=== PATIENT | female | born 1955 | race Caucasian/White ===

== ENCOUNTER 2020-06-04 17:47 | Emergency (ER) | payer SELFPAY ==
[~2020-06-04] VITALS: Ht 167.6 cm; Wt 65.8 kg
[2020-06-04] MEDS ORDERED: DEXAMETHASONE SOD PHOSPHATE 4 MG/ML VIAL IM ONE (18:30)
[2020-06-04] MEDS ORDERED: ACETAMINOPHEN 325 MG TABLET PO ONE (18:30)
[2020-06-04] MEDS ORDERED: MORPHINE SULFATE INJ 2 MG/ML DISP.SYRIN IM ONE (18:30)
[2020-06-04] MEDS ORDERED: ONDANSETRON 4 MG TAB.RAPDIS SL ONE (18:30)
[2020-06-04] MEDS ORDERED: MORPHINE SULFATE INJ 2 MG/ML DISP.SYRIN ONE (18:46)
[2020-06-04] MEDS ORDERED: ACETAMINOPHEN 325 MG TABLET ONE (18:46)
[2020-06-04] MEDS ORDERED: DEXAMETHASONE SOD PHOSPHATE 10 MG/ML VIAL ONE (18:46)
[2020-06-04] MEDS ORDERED: ONDANSETRON 4 MG TAB.RAPDIS ONE (18:46)
[2020-06-04 19:04] LABS: APPEARANCE,URINE Clear (CLEAR); BILIRUBIN,URINE Negative (NEGATIVE); BLOOD, URINE Negative Ery/uL (NEGATIVE); COLOR,URINE Yellow (YELLOW); KETONES,URINE Negative (NEGATIVE); LEUKOCYTE ESTERASE ,URINE Negative (NEGATIVE); NITRITE, URINE Negative (NEGATIVE); PH,URINE 8.5 (5.0-8.0); PROTEIN,URINE Negative (NEGATIVE); UGLUCOSE Negative (NEGATIVE); UROBILINOGEN,URINE 0.2 EU/dL (0.2)
--- NOTE | 2020-06-04 19:15 | NUR ---
patient came in to the er c/o lower back pain, on room air, breathing evenly and unlabored. connected to the monitor and pulse ox. kept comfortable, will continue to monitor accordingly.
--- NOTE | 2020-06-04 19:16 | NUR ---
report given to Tio ORTIZ for irina
[2020-06-04 19:54] LABS: BASOPHILS % (AUTO) 0.6 % (0.0-2.0); EOSINOPHILS % (AUTO) 0.5 % (0.0-6.0); HEMATOCRIT 41 % (33-45); HEMOGLOBIN 13.7 g/dL (11.5-14.8); LYMPHOCYTES # (AUTO) 0.7 /CMM (0.8-4.8); LYMPHOCYTES % (AUTO) 15.9 % (20.0-44.0); MEAN CORPUSCULAR HGB CONC 33 g/dl (31.0-36.0); MEAN CORPUSCULAR VOLUME 99 fL (82-100); MONOCYTES # (AUTO) 0.2 /CMM (0.1-1.30); MONOCYTES % (AUTO) 4.5 % (2.0-12.0); NEUTROPHILS # (AUTO) 3.5 /CMM (1.8-8.9); NEUTROPHILS % (AUTO) 78.5 % (43.0-81.0); PLATELET COUNT (AUTO) 209 /CMM (150-450); RED BLOOD CELL COUNT(AUTO) 4.14 MIL/uL (4.0-5.2); WHITE BLOOD COUNT (AUTO) 4.5 K/uL (4.3-11.0)
[2020-06-04 20:11] LABS: CREATININE 0.6 mg/dL (0.6-1.3); POTASSIUM 3.4 mmol/L (3.5-5.1)
[2020-06-04] MEDS ORDERED: MORPHINE SULFATE INJ 2 MG/ML DISP.SYRIN IV ONE (20:30)
[2020-06-04] MEDS ORDERED: diphenhydrAMINE HCL 50 MG/ML VIAL IV ONE (20:30)
[2020-06-04] MEDS ORDERED: diphenhydrAMINE HCL 50 MG/ML VIAL ONE (20:43)
[2020-06-04] MEDS ORDERED: MORPHINE SULFATE INJ 4 MG/ML DISP.SYRIN ONE (20:43)
[2020-06-04] MEDS ORDERED: IOHEXOL-300 100 ML VIAL IV ONE (20:47)
[2020-06-04] MEDS ORDERED: IV NS 0.9% 250 ML IV ONE (20:48)
--- NOTE | 2020-06-04 22:20 | NUR ---
pt is medically stable for d/c. IV lines removed. Catheter intact and site benign. Pressure and 4x4 applied to site. No bleeding noted.Patient discharged to home in stable condition. Rx and Written and verbal after care instructions given. Patient verbalizes understanding of instruction.
[2020-06-05 00:52] VITALS: BP 122/75
== END 2020-06-04 23:01 | disposition home or self-care (01) ==
LOC: ER 17:52
DX: M54.41 Lumbago with sciatica, right side (principal); R50.9 Fever, unspecified; G89.29 Other chronic pain; Z88.6 Allergy status to analgesic agent
CPT/HCPCS: 36415; 72132; 80048; 81001; 85025; 85730; 96372 ×2; 96374; 96375; 99285; J1100; J1200; J2270 ×2; J7050; Q0162; Q9967; 81000-TC

== ENCOUNTER 2020-06-05 15:41 | Emergency (ER) | payer SELFPAY ==
[~2020-06-05] VITALS: Ht 167.6 cm; Wt 65.8 kg
[2020-06-05] MEDS ORDERED: MORPHINE SULFATE INJ 2 MG/ML DISP.SYRIN ONE (16:16)
[2020-06-05] MEDS ORDERED: MORPHINE SULFATE INJ 4 MG/ML DISP.SYRIN ONE (16:16)
[2020-06-05 16:28] VITALS: BP 135/95
[2020-06-05] MEDS ORDERED: MORPHINE SULFATE INJ 2 MG/ML DISP.SYRIN IM ONE (16:30)
== END 2020-06-05 17:00 | disposition home or self-care (01) ==
LOC: ER 15:55
DX: M54.5 Low back pain (principal); Z88.6 Allergy status to analgesic agent
CPT/HCPCS: 96372; 99283; J2270 ×2

== ENCOUNTER 2020-08-04 22:07 | Emergency (ER) | payer SELFPAY ==
[~2020-08-04] VITALS: Ht 165.1 cm; Wt 74.8 kg
[2020-08-04 22:25] VITALS: BP 143/95
[2020-08-04] MEDS ORDERED: predniSONE 20 MG TABLET ONE (22:46)
[2020-08-04] MEDS ORDERED: MORPHINE SULFATE INJ 4 MG/ML DISP.SYRIN ONE (22:46)
[2020-08-04] MEDS: MORPHINE SULFATE INJ 2 MG/ML DISP.SYRIN IM ONE (22:52)
[2020-08-04] MEDS: predniSONE 20 MG TABLET PO ONE (22:52)
== END 2020-08-04 23:00 | disposition home or self-care (01) ==
LOC: ER 22:12
DX: M54.41 Lumbago with sciatica, right side (principal); M79.661 Pain in right lower leg; Z88.6 Allergy status to analgesic agent; W18.2XXA Fall in (into) shower or empty bathtub, initial encounter; Y93.E1 Activity, personal bathing and showering; Y92.091 Bathroom in other non-institutional residence as the place of occurrence of the external cause; Y99.8 Other external cause status
CPT/HCPCS: 96372; 99283; J2270; J7512

== ENCOUNTER 2020-08-25 11:21 | Emergency (ER) | payer SELFPAY ==
[~2020-08-25] VITALS: Ht 165.1 cm; Wt 65.8 kg
--- NOTE | 2020-08-25 11:28 | NUR ---
came in for bilat knee pain s/p slip hitting the tub. also c/o sciatica x [phone]. took norco, no relief, to ER bed 9, hooked to monitor, changed to hosp gown, warm blanket provided, patient aao X 4, breathing even and unlabored, awaiting MD marie
--- NOTE | 2020-08-25 11:42 | NUR ---
Dr Loya at bedside
[2020-08-25] MEDS ORDERED: MORPHINE SULFATE INJ 4 MG/ML DISP.SYRIN ONE (11:58)
[2020-08-25] MEDS ORDERED: MORPHINE SULFATE INJ 2 MG/ML DISP.SYRIN IM ONE (12:00)
[2020-08-25] MEDS ORDERED: HYDROCODONE/APAP 10/325MG TABLET PO ONE (13:30)
[2020-08-25] MEDS ORDERED: HYDROCODONE/APAP 10/325MG TABLET ONE (13:49)
--- NOTE | 2020-08-25 14:18 | NUR ---
patient provided w walker.
--- NOTE | 2020-08-25 14:21 | NUR ---
Patient discharged to home in stable condition. Written and verbal after care instructions given. Patient verbalizes understanding of instruction.
[2020-08-25 14:22] VITALS: BP 138/87
== END 2020-08-25 14:23 | disposition home or self-care (01) ==
LOC: ER 11:27
DX: S80.02XA Contusion of left knee, initial encounter (principal); S80.01XA Contusion of right knee, initial encounter; M54.41 Lumbago with sciatica, right side; I10 Essential (primary) hypertension; Z88.6 Allergy status to analgesic agent; W18.2XXA Fall in (into) shower or empty bathtub, initial encounter; Y93.E1 Activity, personal bathing and showering; Y92.091 Bathroom in other non-institutional residence as the place of occurrence of the external cause; Y99.8 Other external cause status
CPT/HCPCS: 72110; 73564 ×2; 96372; 99284; J2270

== ENCOUNTER 2020-10-25 02:46 | Emergency (ER) | payer MEDICAID ==
[~2020-10-25] VITALS: Ht 165.1 cm; Wt 61.2 kg
[2020-10-25 02:58] VITALS: BP 168/106
[2020-10-25] MEDS ORDERED: oxyCODONE/APAP (5/325 MG) 1 UDTAB TABLET ONE (03:17)
[2020-10-25] MEDS ORDERED: ONDANSETRON 4 MG TAB.RAPDIS ONE (03:17)
[2020-10-25] MEDS ORDERED: oxyCODONE/APAP (5/325 MG) 1 UDTAB TABLET PO ONE (03:30)
[2020-10-25] MEDS ORDERED: ONDANSETRON 4 MG TAB.RAPDIS SL ONE (03:30)
--- NOTE | 2020-10-25 03:46 | NUR ---
Patient discharged to home in stable condition. Written and verbal after care instructions given. Patient verbalizes understanding of instruction.Pt ambulatory with a steady gait. Pt instructed not to drive, left with daughter
== END 2020-10-25 03:47 | disposition home or self-care (01) ==
LOC: ER 02:46
DX: M54.41 Lumbago with sciatica, right side (principal); Z88.6 Allergy status to analgesic agent
CPT/HCPCS: 99283; Q0162

== ENCOUNTER 2020-11-07 02:10 | Emergency (ER) | payer MEDICAID ==
[~2020-11-07] VITALS: Ht 167.6 cm; Wt 76.2 kg
[2020-11-07 02:57] VITALS: BP 147/89
== END 2020-11-07 03:11 | disposition home or self-care (01) ==
LOC: ER 02:13
DX: M54.41 Lumbago with sciatica, right side (principal); Z88.6 Allergy status to analgesic agent

== ENCOUNTER 2020-11-24 00:56 | Emergency (ER) | payer MEDICAID ==
[~2020-11-24] VITALS: Ht 167.6 cm; Wt 76.2 kg
[2020-11-24 00:57] VITALS: BP 151/97
[2020-11-24] MEDS ORDERED: DEXAMETHASONE SOD PHOSPHATE 10 MG/ML VIAL ONE (01:43)
[2020-11-24] MEDS ORDERED: DEXAMETHASONE SOD PHOSPHATE 4 MG/ML VIAL IV ONE (02:00)
== END 2020-11-24 01:48 | disposition home or self-care (01) ==
LOC: ER 00:58
DX: S80.02XA Contusion of left knee, initial encounter (principal); G89.29 Other chronic pain; Z88.6 Allergy status to analgesic agent; W01.0XXA Fall on same level from slipping, tripping and stumbling without subsequent striking against object, initial encounter; Y93.89 Activity, other specified; Y92.89 Other specified places as the place of occurrence of the external cause; Y99.8 Other external cause status
CPT/HCPCS: 73564-TC; J1100

== ENCOUNTER 2021-04-05 19:54 | Emergency (ER) | payer SELFPAY ==
[~2021-04-05] VITALS: Ht 165.1 cm; Wt 68.0 kg
[2021-04-05 19:58] VITALS: BP 143/88
[2021-04-05] MEDS ORDERED: HYDROCODONE/APAP 10/325MG TABLET ONE (20:42)
[2021-04-05] MEDS ORDERED: HYDROCODONE/APAP 10/325MG TABLET PO ONE (21:00)
[2021-04-05] MEDS ORDERED: OXYC-133 PO (21:29)
== END 2021-04-05 21:44 | disposition home or self-care (01) ==
LOC: ER 20:01
DX: R07.81 Pleurodynia (principal); Z88.6 Allergy status to analgesic agent; W22.8XXA Striking against or struck by other objects, initial encounter; Y93.89 Activity, other specified; Y92.89 Other specified places as the place of occurrence of the external cause; Y99.8 Other external cause status
CPT/HCPCS: 71100-TC

== ENCOUNTER → 2021-05-08 | Emergency (ER) | payer SELFPAY ==
[~2021-05-08] VITALS: Ht 167.6 cm; Wt 68.0 kg
[~2021-05-08] MED LIST: FAMOTIDINE/PF INJ 20 MG/2 ML VIAL IV ONE; HYDR-4303 PO; HYDROCODONE/APAP 5/325MG TABLET ONE; HYDROCODONE/APAP 5/325MG TABLET PO ONE; OXYC-128 PO; OXYC-133 PO; diphenhydrAMINE HCL 50 MG/ML VIAL ONE; methylPREDNISolone SOD SUCC 125 MG/2ML VIAL ONE
[2021-05-08 15:45] VITALS: BP 146/95
--- NOTE | 2021-05-08 15:45 | NUR ---
THE PATIENT BIBS FOR C/O LEFT LOWER RIBCAGE PAIN AFTER SNEEZING. RATES PAIN 8/10. IN ROOM AIR AND DENIES SOB. RESPIRATION REGULAR AND UNLABORED. ATTACHED TO THE MONITOR. WARM BLANKET PROVIDED FOR COMFORT. WILL CONTINUE TO MONITOR THE PATIENT.
== END | disposition home or self-care (01) ==
LOC: ER 15:36
DX: S22.32XA Fracture of one rib, left side, initial encounter for closed fracture (principal); Z88.6 Allergy status to analgesic agent; W22.8XXA Striking against or struck by other objects, initial encounter; Y93.89 Activity, other specified; Y92.090 Kitchen in other non-institutional residence as the place of occurrence of the external cause; Y99.8 Other external cause status
CPT/HCPCS: 71100-TC; J1200; J2930; J3490

== ENCOUNTER 2021-05-10 15:04 | Emergency (ER) | payer SELFPAY ==
[~2021-05-10] VITALS: Ht 167.6 cm; Wt 72.6 kg
[~2021-05-10 15:04] MED LIST changes: -FAMOTIDINE/PF INJ 20 MG/2 ML VIAL IV ONE; -HYDROCODONE/APAP 5/325MG TABLET ONE; -HYDROCODONE/APAP 5/325MG TABLET PO ONE; -OXYC-128 PO; -diphenhydrAMINE HCL 50 MG/ML VIAL ONE; -methylPREDNISolone SOD SUCC 125 MG/2ML VIAL ONE
[2021-05-10] MEDS ORDERED: ONDANSETRON HCL/PF - ER 4 MG/2 ML VIAL IV ONE (16:30)
[2021-05-10] MEDS ORDERED: MORPHINE SULFATE INJ 2 MG/ML DISP.SYRIN IV ONE (16:30)
[2021-05-10] MEDS ORDERED: IV NS 0.9% 250 ML IV ONE ×2 (16:30→19:32)
[2021-05-10] MEDS ORDERED: ONDANSETRON HCL/PF 4 MG/2 ML VIAL ONE (16:34)
[2021-05-10] MEDS ORDERED: MORPHINE SULFATE INJ 2 MG/ML DISP.SYRIN ONE (16:34)
[2021-05-10 16:37] LABS: BASOPHILS % (AUTO) 0.5 % (0.0-2.0); EOSINOPHILS % (AUTO) 0.3 % (0.0-6.0); HEMATOCRIT 38 % (33-45); HEMOGLOBIN 12.6 g/dL (11.5-14.8); LYMPHOCYTES # (AUTO) 1.4 K/uL (0.8-4.8); LYMPHOCYTES % (AUTO) 28.6 % (20.0-44.0); MEAN CORPUSCULAR HGB CONC 34 g/dl (31.0-36.0); MEAN CORPUSCULAR VOLUME 99 fL (82-100); MONOCYTES # (AUTO) 0.4 K/uL (0.1-1.30); NEUTROPHILS % (AUTO) 61.6 % (43.0-81.0); PLATELET COUNT (AUTO) 198 K/uL (150-450); RED BLOOD CELL COUNT(AUTO) 3.81 MIL/uL (4.0-5.2); WHITE BLOOD COUNT (AUTO) 4.9 K/uL (4.3-11.0)
[2021-05-10 16:44] LABS: CALCIUM, SERUM 8.5 mg/dL (8.5-10.1); CARBON DIOXIDE 26 mmol/L (21-32); CHLORIDE 109 mmol/L (98-107); CREATININE 0.6 mg/dL (0.6-1.3); GLUCOSE 97 mg/dL (74-106); POTASSIUM 3.5 mmol/L (3.5-5.1); SODIUM SERUM 143 mmol/L (136-145); UREA NITROGEN, BLOOD 21 mg/dL (7-18)
--- NOTE | 2021-05-10 18:42 | NUR ---
The patient bibs for c/o "Rib Pain- Dx w/Fx was seen here and given pain BUT NOT better" Rates pain 07/19. In room air and denies SOB. Respiration regular and unlabored. The patient denies cough. Will continue to monitor the patient.
[2021-05-10] MEDS ORDERED: HYDROMORPHONE 1 MG/1 ML DISP.SYRIN ONE ×2 (19:15→20:06)
[2021-05-10] MEDS ORDERED: HYDROMORPHONE 1 MG/1 ML DISP.SYRIN IV ONE ×2 (19:30→20:00)
[2021-05-10] MEDS ORDERED: CT SWABBABLE VALVE TRANS SET 1 EA INFUS.SET MC ONE (19:32)
[2021-05-10] MEDS ORDERED: IOHEXOL-350 100 ML VIAL IV ONE (19:32)
--- NOTE | 2021-05-10 19:34 | NUR ---
PT TO CT
--- NOTE | 2021-05-10 19:50 | NUR ---
PT CAME BACK FROM CT, WITH ALLERGIC RXN, VERBAL ORDERS FROM DR LOZANO, PEPCID/BENADRYL/SOLU MEDROL IVP GIVEN.
[2021-05-10] MEDS ORDERED: FAMOTIDINE/PF INJ 20 MG/2 ML VIAL IV ONE (20:00)
[2021-05-10] MEDS ORDERED: diphenhydrAMINE HCL 50 MG/ML VIAL IV ONE (20:00)
[2021-05-10] MEDS ORDERED: methylPREDNISolone SOD SUCC 125 MG/2ML VIAL IV ONE (20:00)
[2021-05-10] MEDS ORDERED: OXYC-128 PO (22:00)
--- NOTE | 2021-05-10 22:23 | NUR ---
Patient discharged to home in stable condition. Written and verbal after care instructions given. Patient verbalizes understanding of instruction. IV removed. Catheter intact and site benign. Pressure and 4x4 applied to site. No bleeding noted.
[2021-05-10 23:09] VITALS: BP 144/92
== END 2021-05-10 22:23 | disposition home or self-care (01) ==
LOC: ER 15:06
DX: S22.32XD Fracture of one rib, left side, subsequent encounter for fracture with routine healing (principal); Z98.890 Other specified postprocedural states; Z88.6 Allergy status to analgesic agent; W22.8XXD Striking against or struck by other objects, subsequent encounter
CPT/HCPCS: 36415; 71250; 71275; 80048; 84484; 85025; 85378; 93005; 96361; 96374; 96375; 99285; J1170 ×2; J2270; J2405 ×2; J7030; J7050; Q9967

== ENCOUNTER 2021-07-14 14:28 | Emergency (ER) | payer SELFPAY ==
[~2021-07-14] VITALS: Ht 167.6 cm; Wt 70.3 kg
[~2021-07-14 14:28] MED LIST changes: +OXYC-128 PO
[2021-07-14 14:34] VITALS: BP 153/83
--- NOTE | 2021-07-14 14:45 | NUR ---
AT BEDSIDE FOR EVAL.
[2021-07-14] MEDS ORDERED: ONDANSETRON 4 MG TAB.RAPDIS ONE (14:59)
[2021-07-14] MEDS ORDERED: MORPHINE SULFATE INJ 2 MG/ML DISP.SYRIN ONE (14:59)
[2021-07-14] MEDS ORDERED: MORPHINE SULFATE INJ 2 MG/ML DISP.SYRIN IM ONE (15:00)
[2021-07-14] MEDS ORDERED: ONDANSETRON 4 MG TAB.RAPDIS SL ONE (15:00)
[2021-07-14] MEDS ORDERED: HYDR-4303 PO (15:46)
--- NOTE | 2021-07-14 16:11 | NUR ---
Patient discharged to home in stable condition. Written and verbal after care instructions given. Patient verbalizes understanding of instruction.
== END 2021-07-14 16:13 | disposition home or self-care (01) ==
LOC: ER 14:39
DX: G89.29 Other chronic pain (principal); M54.41 Lumbago with sciatica, right side; N81.10 Cystocele, unspecified; Z88.6 Allergy status to analgesic agent; Z79.899 Other long term (current) drug therapy; W18.2XXA Fall in (into) shower or empty bathtub, initial encounter; Y93.E1 Activity, personal bathing and showering; Y92.091 Bathroom in other non-institutional residence as the place of occurrence of the external cause; Y99.8 Other external cause status
CPT/HCPCS: 96372; 99283; J2270; Q0162

== ENCOUNTER 2021-09-19 00:29 | Emergency (ER) | payer SELFPAY ==
[~2021-09-19] VITALS: Ht 167.6 cm; Wt 74.8 kg
[2021-09-19 00:42] VITALS: BP 136/86
[2021-09-19] MEDS ORDERED: DEXAMETHASONE SOD PHOSPHATE 4 MG/ML VIAL IM ONE (01:00)
[2021-09-19] MEDS ORDERED: HYDROCODONE/APAP 5/325MG TABLET PO ONE (01:00)
[2021-09-19] MEDS ORDERED: CARISOPRODOL 350 MG TABLET PO ONE (01:00)
[2021-09-19] MEDS ORDERED: DEXAMETHASONE SOD PHOSPHATE 10 MG/ML VIAL ONE (01:01)
[2021-09-19] MEDS ORDERED: CARISOPRODOL 350 MG TABLET ONE (01:01)
[2021-09-19] MEDS ORDERED: HYDROCODONE/APAP 5/325MG TABLET ONE (01:01)
[2021-09-19] MEDS ORDERED: HYDR-3972 PO (01:33)
[2021-09-19] MEDS ORDERED: PRED50TA PO (01:33)
[2021-09-19] MEDS ORDERED: CARI350T PO (01:33)
== END 2021-09-19 01:50 | disposition home or self-care (01) ==
LOC: ER 00:30
DX: M54.41 Lumbago with sciatica, right side (principal); Z88.6 Allergy status to analgesic agent; Z79.899 Other long term (current) drug therapy
CPT/HCPCS: 96372; 99283; J1100